=== PATIENT | female | born 1985 | race Caucasian/White ===

== ENCOUNTER 2022-12-25 05:26 | Emergency (ER) | payer MEDICAID, OTHER ==
[~2022-12-25] VITALS: Ht 175.3 cm; Wt 79.4 kg
--- NOTE | 2022-12-25 06:21 | NUR ---
CELL NUMBER [phone]
[2022-12-25] MEDS ORDERED: LORAZEPAM INJ 2 MG/ML VIAL IM ONE (06:30)
--- NOTE | 2022-12-25 06:50 | NUR ---
PATIENT REFUSED MEDS, RISK AND BENEFITS EXPLAINED X 2.
--- NOTE | 2022-12-25 06:59 | NUR ---
Patient discharged to home in stable condition. Written and verbal after care instructions given. Patient verbalizes understanding of instruction. Pt ambulated with steady gait. [id number].
[2022-12-25 07:49] VITALS: BP 140/87
--- NOTE | 2022-12-25 07:49 | NUR ---
Porfirio crawford in [facility] - 12/25/22 at 0750 by ALFA Patient discharged to home in stable condition. Written and verbal after care instructions given. Patient verbalizes understanding of instruction.
== END 2022-12-25 07:50 | disposition home or self-care (01) ==
LOC: ER 05:38
DX: F19.120 Other psychoactive substance abuse with intoxication, uncomplicated (principal); F19.10 Other psychoactive substance abuse, uncomplicated; R45.1 Restlessness and agitation; I10 Essential (primary) hypertension; Z88.6 Allergy status to analgesic agent; Z60.2 Problems related to living alone